=== PATIENT | female | born 1990 | race Caucasian/White ===

== ENCOUNTER 2018-07-31 06:00 | Inpatient (IN) ==
[2018-07-31] MEDS ORDERED: Naloxone 0.4 MG/ML INJ IVP PRN (06:22)
[2018-07-31] MEDS ORDERED: Ondansetron 4 MG/2 ML VIAL IVP PRN (06:22)
[2018-07-31] MEDS ORDERED: Metoclopramide 10 MG/2 ML VIAL IVP PRN (06:22)
[2018-07-31] MEDS ORDERED: Famotidine 20 MG/2 ML VIAL IVP PRN (06:22)
[2018-07-31] MEDS ORDERED: Ringers Solution, Lactated 1,000 ML IVC SCH (06:30)
[2018-07-31 06:56] LABS: Amphetamine Screen,Urine Negative ng/mL (Cutoff=1000); Barbiturate Screen,Urine Positive ng/mL (Cutoff=200)
[2018-07-31 06:57] LABS: Basophils % 0.3 %; Benzodiazepines Screen,Urine Negative ng/mL (Cutoff=300); Cannabinoid Screen,Urine Negative ng/mL (Cutoff = 50); Cocaine Screen,Urine Negative ng/mL (Cutoff= 300); Eosinophils # 0.1 K/mcL (0.0-0.6); Eosinophils % 1.9 %; Hematocrit 37.1 % (35.3-44.9); Hemoglobin 12.4 g/dL (11.5-15.4); Immature Granulocytes % 0.3 % (0-4); Lymphocytes # 1.9 K/mcL (0.6-4.6); Mean Corpuscular HGB Conc 33.4 g/dL (31.6-35.5); Mean Corpuscular Hemoglobin 31.6 pg (28.0-33.3); Mean Corpuscular Volume 94.6 fL (83.0-100.0); Mean Platelet Volume 10.4 fL (9.4-12.4); Monocytes # 0.6 K/mcL (0.0-1.3); Monocytes % 8.5 %; Neutrophils # 3.9 K/mcL (1.6-8.9); Opiate Screen,Urine Negative ng/mL (Cutoff=300); Phencyclidine Screen,Urine Negative ng/mL (Cutoff=25); Platelet Count 164 K/mcL (140-400); Red Blood Count 3.92 M/mcL (3.82-4.97); Red Cell Distribution Width 13.9 % (11.5-14.5)
[2018-07-31] MEDS ORDERED: miSOPROStol 100 MCG TABLET PO SCH ×2 (08:48→12:00)
--- NOTE | 2018-07-31 09:44 | Anesthesia Evaluation PreOp ---
Date of Encounter: 07/31/18 Time of Encounter: 08:00 - Past History Planned Operation: adore Cardiac History: Denies any Significant Hx Pulmonary History: Denies Any Significant HX SPORTS MANAGER History: Denies Any Significant HX Other Medical History: Denies Any Significant HX Anesthesia History: No Prior Anesthetic Complications : Yes Test: Positive Alcohol Use: none Drug use: none, other Medications and Allergies Buprenorphine HCl [Subutex] 8 mg SL DAILY 04/27/18 [History] Butalbital/Acetaminophen [Butalbital-Acetamin 50-300 Tab] 1 tab PO Q8H PRN 04/27 [History] Docusate [Colace] 100 mg PO DAILY PRN 04/27/18 [History] Vit Calc,Iron,Folic [ Vitamins] 1 each PO DAILY 04/27/18 [ History] Promethazine [Phenergan] 25 mg PO Q6HR PRN 04/27/18 [History] raNITIdine HCl [Zantac] 150 mg PO BID 04/27/18 [History] Aspirin [Lo-Dose Aspirin EC] 81 mg PO DAILY 07/31/18 [History] Propranolol [Inderal] 15 mg PO DAILY 07/31/18 [History] 3 Allergy/AdvReac Type Severity Reaction Status Date / Time Buspirone [From BuSpar] AdvReac Dizziness Verified 04/27/18 10:30 - Meds/Allergy Pre-op Review Medications Reviewed: Yes Allergies Reviewed: Yes Beta Blockers on Current Med List: No Anesthesia Results - Labs 07/31/18 06:35 Anesthesia Exam - HEENT Pupil (Motor): Pupils equal Mallampati: II Teeth: Normal Oral Opening: Greater than 3 - SPORTS MANAGER LOC: Oriented SPORTS MANAGER Motor: Normal RUE, Normal LUE, Normal RLE, Normal LLE, Normal Face SPORTS MANAGER Sensory: Normal: RUE, LUE, RLE, LLE, Face - Cardiac Rhythm: Regular Murmur: None JVD: No Carotid Bruit: No - Pulmonary Breath Sounds: bilateral Clear Respiratory Effort: Symmetrical Anesthesia Assess/Plan ASA Score: 2 Modified [place] Scale for Level of Consciousness: Cooperative, oriented, and tranquil Anesthetic Plan: Regional Autologous Blood: No Monitoring Plan: Standard Monitors
[2018-07-31] MEDS ORDERED: Epidural Premix (fent/bupiv) 110 ML EP SCH (09:45)
[2018-07-31] MEDS ORDERED: miSOPROStol 100 MCG TABLET PO ONE (11:56)
[2018-07-31] MEDS ORDERED: Oxytocin 20 units/ LR 1000 mL 20 UNIT/1,000 ML BAG IVC SCH (16:45)
[2018-07-31] MEDS ORDERED: Acetaminophen/Butalbital/CaffeineTABLET PO ONE (18:43)
[2018-07-31] MEDS ORDERED: Lidocaine -MPF 1% 5 ML AMPUL ONE (22:05)
--- NOTE | 2018-08-01 00:38 | OB Labor Progress Note ---
Date of Encounter: 08/01/18 Time of Encounter: 00:36 Labor Progress Note - Subjective Subjective: Pt comfortable with epidural, getting frustrated. - Cervix Cervix: 4/80/-2 - Heart Tones Heart Tones: RNST - Interventions Interventions: IUPC placed - Plan Plan: Expect
--- NOTE | 2018-08-01 00:42 | OB/GYN History & Physical ---
Date of Encounter: 07/31/18 Time of Encounter: 08:20 Assessment and Plan (1) with 39 completed weeks gestation Current visit: Yes Status: Acute Pt at 39wk 5 days gestation presents for induction of labor. 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 History of Present Illness Chief complaint: Here for induction HPI: Ms. Longoria is a 28 year old female 3 para1 female at 39 weeks 5 days gestation presents for induction of labor. On arrival she reports irregular contractions no bleeding leakage fluid. Patient's concave by history of narcotics addiction for which she is on Subutex. 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 Past Med Surg Social Fam HX - Past Medical History Source: patient, old records reviewed Medical history: other (Narcotics addiction, factor II deficiency) Psychiatric history: anxiety - Past Surgical History Surgical History: no surgical history - Social History Smoking Status: Never smoker Alcohol use: none Drug use: none, other - Family History Mother Living Status: Still Living Hx Family Medical Disorders: No (Factor V disorder) Obstetrical History - Pregnancies : 3 Ab's: 1 Medications and Allergies Buprenorphine HCl [Subutex] 8 mg SL DAILY 04/27/18 [History] Butalbital/Acetaminophen [Butalbital-Acetamin 50-300 Tab] 1 tab PO Q8H PRN 04/27 [History] Docusate [Colace] 100 mg PO DAILY PRN 04/27/18 [History] Vit Calc,Iron,Folic [ Vitamins] 1 each PO DAILY 04/27/18 [ History] Promethazine [Phenergan] 25 mg PO Q6HR PRN 04/27/18 [History] raNITIdine HCl [Zantac] 150 mg PO BID 04/27/18 [History] Aspirin [Lo-Dose Aspirin EC] 81 mg PO DAILY 07/31/18 [History] Propranolol [Inderal] 15 mg PO DAILY 07/31/18 [History] 3 Allergy/AdvReac Type Severity Reaction Status Date / Time Buspirone [From BuSpar] AdvReac Dizziness Verified 04/27/18 10:30 Exam - Constitutional Constitutional: well developed, well nourished, no acute distress - HEENT HEENT: EOMI, PERRL - Neck Neck exam: full ROM - Lungs Respiratory exam: CTAB - Cardiovascular Cardiovascular exam: RRR - Abdomen Abdomen: Present: bowel sounds normal, gravid - Extremities Extremities exam: full ROM Deep Tendon Reflex Grade: 2+ Normal - Cervix Dilation: 2 Effacement: 70 Station: -2 - Uterus Uterus exam: Present: enlarged Results Result Diagrams: 07/31/18 06:35 Abnormal lab results Ur Barbiturates Screen Positive ng/mL (Paqhzl=[id number]) H 07/31/18 06:35 All other labs normal. - VTE Reasons for not Prescribing Prophylaxis: Treatment not Indicated - Low risk for VTE
--- NOTE | 2018-08-01 00:51 | OB Labor Progress Note ---
Date of Encounter: 08/01/18 Time of Encounter: 15:10 Labor Progress Note - Subjective Subjective: Uc's getting stronger. - Cervix Cervix: 2-3/70/-2 - Heart Tones Heart Tones: RNST - [place]: uc's q 5 min. - Interventions Interventions: AROM clear - Plan Plan: Expect .
--- NOTE | 2018-08-01 01:24 | Anesthesia Procedures ---
Date of Encounter: 08/01/18 Time of Encounter: 22:10 Procedures: Anesthesia - Epidural/Spinal Patient ID/Chart reviewed: Yes Patient examined: Yes OB Eval: Gestational age: 39 OB Eval: : 1 OB Eval: Hx Para: 0 OB Eval: Contractions: Non-stressed pattern Consent Obtained: Yes Supplemental Oxygen: None/Room Air Site Prep: Aseptic Technique, Sterile prep and drape, Povidone-Iodine 1% Patient position: upright Amount of Local Anesthetic used: 3 Touhy Needle Gauge: 18 Touhy Needle Depth (cm): 6 Catheter Depth at Skin (cm): 8 Test Dose Result: Negative Infusion Rate (mls/hr): [address]: Tegaderm, Tape Interspace Used: L4-L5 Loss of Resistance (JAY): Yes Blood: No CSF: No Paresthesia: No Vitals + FHT's: STABLE THROUGHOUT SEE NURSING NOTES
[2018-08-01] MEDS ORDERED: EPHEDrine 50 MG/ML VIAL ONE (04:15)
--- NOTE | 2018-08-01 05:35 | OB/GYN Procedure Note ---
Delivery - Delivery Date: 08/01/18 Provider: Eliezer Musa Intrapartum events: none Delivery induction: misoprostol Delivery monitor: external FHT, internal uterine Anesthesia: epidural Quantitated Blood Loss: 100 - (s) A Delivery Date: 08/01/18 Infant Delivery Time: 05:07 Presentation: vertex Position: NASIM Route of delivery: Gender: Female Viability: Viable Ounces: 8 Weight Gram: 6 kg at 5 mins: 8 at 10 mins: 8 Specimens collected: cord blood Placenta: spontaneous Cord: 3 umbilical vessels, delivered through nuchal - Repair Episiotomy: none Laceration Description: Perineal - 1st Degree - Complications Delivery complications: none - Disposition Mom disposition: stable in LDR [place] disposition: stable in LDR - Comments Comments: Patient is status post normal spontaneous vaginal delivery of liveborn female weighing 8 lbs. 6 oz. Apgars of 8 at 1 minute and 8 at 5 minutes. After delivered the head there was a nuchal cord which was delivered through. Cord was clamped and cut and cord pulsation ceased. Spontaneous delivery normal placenta with three-vessel cord. This first-degree laceration repaired with 3-0 Vicryl. EBL was less than 100cc, mother and infant recovered in labor and delivery room
[2018-08-01] MEDS ORDERED: Acetaminophen 325 MG TABLET PO PRN (08:11)
[2018-08-01] MEDS ORDERED: Rho Immune Globulin 1,500 UNIT SYRINGE IM PRN (08:11)
[2018-08-01] MEDS ORDERED: Oxytocin 20 units/ LR 1000 mL 20 UNIT/1,000 ML BAG IVC SCH (08:11)
[2018-08-01] MEDS ORDERED: Measles/Mumps/Rubella Vacc 0.5 ML VIAL SQ PRN (08:11)
[2018-08-01] MEDS: *HR* Buprenorphine HCl 2 MG SUBLINGUAL TABLET SL SCH (08:55)
[2018-08-01] MEDS: Ibuprofen 600 MG TABLET PO PRN ×2 (08:56→16:24)
[2018-08-01] MEDS: Prenatal Vit/FA 1 EACH TABLET PO SCH (08:56)
[2018-08-01] MEDS ORDERED: Famotidine 20 MG TABLET PO SCH (09:00)
[2018-08-01] MEDS ORDERED: *HR* Enoxaparin 40 MG/0.4 ML SYRINGE SQ SCH (09:00)
[2018-08-01] MEDS: Benzocaine/Menthol 56 GM AEROSOL SPRAY TP PRN ×2 (12:41→20:52)
[2018-08-02] MEDS: Ibuprofen 600 MG TABLET PO PRN (04:24)
[2018-08-02 07:19] LABS: Basophils % 0.4 %; Eosinophils # 0.2 K/mcL (0.0-0.6); Eosinophils % 2.3 %; Hemoglobin 11.2 g/dL (11.5-15.4); Immature Granulocytes % 0.3 % (0-4); Lymphocytes # 2.4 K/mcL (0.6-4.6); Lymphocytes % 30.4 %; Mean Corpuscular HGB Conc 32.9 g/dL (31.6-35.5); Mean Corpuscular Volume 97.1 fL (83.0-100.0); Mean Platelet Volume 9.7 fL (9.4-12.4); Monocytes # 0.6 K/mcL (0.0-1.3); Neutrophils # 4.6 K/mcL (1.6-8.9); Platelet Count 132 K/mcL (140-400); Red Cell Distribution Width 14.1 % (11.5-14.5); Segmented Neutrophils % 58.6 %
--- NOTE | 2018-08-02 08:49 | Discharge Summary ---
Date of Encounter: 08/02/18 Time of Encounter: 08:46 - Discharge Diagnosis (1) Status post vaginal delivery Priority: Primary Status: Acute Comments: 28 y/o s/p of a baby girl at 39w5d. Pt is meeting PP milestones. Pt desires Depo for control. Discharge home today. (2) Factor II deficiency Priority: Secondary Status: Acute Comments: Per consult note with hematology, they are advising Lovenox 40 mg subcutaneous daily for 6 weeks . Pt and her partner educated on administration by bedside RN. (3) Narcotic addiction Priority: Secondary Status: Acute Comments: Pt to discharge home on current Subutex dosing. Follow-up with group this afternoon. - Discharge Medications Prescriptions: Ibuprofen [Motrin] 600 mg PO Q6HR PRN #30 tablet PRN Reason: Cramping Docusate [Colace] 100 mg PO DAILY PRN #30 capsule PRN Reason: Constipation Enoxaparin [Lovenox] 40 mg SQ DAILY #42 syringe Home Medications: Buprenorphine HCl [Subutex] 8 mg SL DAILY 04/27/18 [History] Vit Calc,Iron,Folic [ Vitamins] 1 each PO DAILY 04/27/18 [ History] raNITIdine HCl [Zantac] 150 mg PO BID 04/27/18 [History] Propranolol [Inderal] 15 mg PO DAILY 07/31/18 [History] Benzocaine/Menthol [place] [Dermoplast [place]] 1 appl TP QID PRN aerosol 08/02/18 [Rx] Docusate [Colace] 100 mg PO DAILY PRN #30 capsule 08/02/18 [Rx] Enoxaparin [Lovenox] 40 mg SQ DAILY #42 syringe 08/02/18 [Rx] Ibuprofen [Motrin] 600 mg PO Q6HR PRN #30 tablet 08/02/18 [Rx] Allergies/Adverse Reactions: 3 Allergy/AdvReac Type Severity Reaction Status Date / Time Buspirone [From BuSpar] AdvReac Dizziness Verified 04/27/18 10:30 Data Procedures and tests throughout hospitalization: Laboratory Tests 07/31/18 07/31/18 08/02/18 06:35 06:35 07:04 WBC 6.4 7.8 RBC 3.92 3.50 L Hgb 12.4 11.2 L Hct 37.1 34.0 L MCV 94.6 97.1 MCH 31.6 32.0 MCHC 33.4 32.9 RDW 13.9 14.1 Plt Count 164 132 L MPV 10.4 9.7 Immature Gran % 0.3 0.3 Seg Neutrophils % 60.0 58.6 Lymphocytes % 29.0 30.4 Monocytes % 8.5 8.0 Eosinophils % 1.9 2.3 Basophils % 0.3 0.4 Neutrophils # 3.9 4.6 Lymphocytes # 1.9 2.4 Monocytes # 0.6 0.6 Eosinophils # 0.1 0.2 Basophils # 0.0 0.0 Urine Opiates Screen Negative Ur Barbiturates Screen Positive H Ur Phencyclidine Scrn Negative Ur Amphetamines Screen Negative U Benzodiazepines Scrn Negative Urine Cocaine Screen Negative U Marijuana (THC) Screen Negative Ur Drug Screen Interp See Below Labs on day of discharge: Labs from last 24 hours 08/02/18 07:04 WBC 7.8 RBC 3.50 L Hgb 11.2 L Hct 34.0 L MCV 97.1 MCH 32.0 MCHC 32.9 RDW 14.1 Plt Count 132 L MPV 9.7 Immature Gran % 0.3 Seg Neutrophils % 58.6 Lymphocytes % 30.4 Monocytes % 8.0 Eosinophils % 2.3 Basophils % 0.4 Neutrophils # 4.6 Lymphocytes # 2.4 Monocytes # 0.6 Eosinophils # 0.2 Basophils # 0.0 Date of admission: 07/31/18 06:20 Primary care physician: Obdulia Giles CNP Consults: 08/01/18 08:11 Consult to Multi Share Program Coordinator [CONS] Routine Comment: Vaginal delivery, consult needed Consult to Automotive Refinish Technician [CONS] Routine Reason for SW Consult: narcotics addiction Discharging clinician: Lise Merritt Anticipated date of discharge: 08/02/18 - Patient Status Disposition: Home, Self-Care Condition: Good Functional capacity at discharge: independent ambulation Overall status at discharge: patient is progressing back to baseline - Discharge Instructions Follow Up With: Obdulia Giles CNP [Primary Care Provider] - Bozena Cross CNP [Family Provider] - Eliezer Musa MD [Partnered Physician] - - Diet and Activity Activity: increase activity as tolerated Diet: advance to your usual diet Hospital Course Reason for admission: induction of labor Delivery: Episiotomy: none Laceration: 1st degree complications: none Discharge diagnosis: IUP at term delivered baby: female Hospital course: - Delivery Date: 08/01/18 Provider: Eliezer Musa Intrapartum events: none Delivery induction: misoprostol Delivery monitor: external FHT, internal uterine Anesthesia: epidural Quantitated Blood Loss: 100 - Infant (s) A Infant Delivery Date: 08/01/18 Infant Delivery Time: 05:07 Presentation: vertex Position: NASIM Route of delivery: Gender: Female Viability: Viable Ounces: 8 Weight Gram: 6 kg at 5 mins: 8 at 10 mins: 8 Specimens collected: cord blood Placenta: spontaneous Cord: 3 umbilical vessels, delivered through nuchal - Repair Episiotomy: none Laceration Description: Perineal - 1st Degree - Complications Delivery complications: none - Disposition Mom disposition: stable in LDR [place] disposition: stable in LDR - Comments Comments: Patient is status post normal spontaneous vaginal delivery of liveborn female weighing 8 lbs. 6 oz. Apgars of 8 at 1 minute and 8 at 5 minutes. After delivered the head there was a nuchal cord which infant was delivered through. Cord was clamped and cut and cord pulsation ceased. Spontaneous delivery normal placenta with three-vessel cord. This first-degree laceration repaired with 3-0 Vicryl. EBL was less than 100cc, mother and recovered in labor and delivery room Time Attestation: Total time spent providing and/or coordinating discharge services: Exam - Constitutional Vitals: Temp Pulse Resp BP Pulse Ox 97.5 F L 64 14 114/67 98 08/02/18 04:25 08/02/18 04:25 08/02/18 04:25 08/02/18 04:25 08/02/18 04:25 General appearance IM: A&O X 3, pleasant, no acute distress - Respiratory Respiratory exam: Present: CTAB - Cardiovascular Cardiovascular exam IM: Present: RRR, +S1, +S2 - GI/Abdominal GI/Abdominal exam IM: normal bowel sounds - Uterine Tone: Firm Uterus Position: 1 Finger Below Umbilicus - Extremities Exam Extremities exam IM: Present: normal inspection - Neurological Exam Neurological exam: alert, oriented X3
[2018-08-02 09:02] VITALS: BP 106/66
[2018-08-02] MEDS: *HR* Buprenorphine HCl 2 MG SUBLINGUAL TABLET SL SCH (09:03)
[2018-08-02] MEDS: Prenatal Vit/FA 1 EACH TABLET PO SCH (09:08)
== END 2018-08-02 10:17 | disposition home or self-care (01) | DRG 806 ==
LOC: 1NENULAB 06:20 → 1NENUOBS 08-01 08:08
PROVIDERS: ADMIT Obstetrics & Gynecology; ATTEND Obstetrics & Gynecology